=== PATIENT | male | born 1990 | race American Indian/Alaskan Native ===

== ENCOUNTER 2017-01-28 08:54 | Emergency (ER) | payer MEDICAID ==
[2017-01-28 09:53] LABS: Basophils % (Auto) 1.1 % (0.0-1.8); Eosinophils % (Auto) 4.9 % (0.0-4.3); Hematocrit 44.2 % (35.5-45.6); Hemoglobin 14.7 gm/dl (11.8-15.2); Mean Corpuscular HGB Conc 33 % (32-34); Mean Corpuscular Hemoglobin 32 pg (28-32); Mean Corpuscular Volume 96 fl (84-94); Platelet Count 134 K/mm3 (140-440); Red Blood Count 4.59 M/mm3 (3.65-5.03); White Blood Count 4.7 K/mm3 (4.5-11.0)
[2017-01-28 09:58] LABS: Anion Gap 16 mmol/L; BUN/Creatinine Ratio 11.81; Blood Urea Nitrogen 13 mg/dL (9-20); Calcium 9.4 mg/dL (8.4-10.2); Carbon Dioxide 25 mmol/L (22-30); Chloride 102.1 mmol/L (98-107); Glucose 94 mg/dL (75-100); Potassium 4.5 mmol/L (3.6-5.0); Sodium 139 mmol/L (137-145)
[2017-01-28 10:27] LABS: Urine Drugs of Abuse Note Disclamer
[2017-01-28 10:39] LABS: Bilirubin,Urine NEG (Negative); Blood,Urine NEG (Negative); Ketones,Urine TR mg/dL (Negative); Leukocyte Esterase,Urine NEG (Negative); Mucus,Urine FEW /HPF; Nitrite,Urine NEG (Negative); Protein,Urine <15 mg/dL mg/dL (Negative); Urobilinogen,Urine < 2.0 mg/dL (<2.0)
[2017-01-28 10:44] LABS: WBC,Urine < 1.0 /HPF (0.0-6.0)
[2017-01-28 13:32] VITALS: BP 130/78
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
== END 2017-01-28 14:14 | disposition home or self-care (01) ==
LOC: ED 08:54
DX: F20.9 Schizophrenia, unspecified (principal); Z76.0 Encounter for issue of repeat prescription; F31.9 Bipolar disorder, unspecified; F17.200 Nicotine dependence, unspecified, uncomplicated
CPT/HCPCS: 36415; 80048; 80164; 80307; 81001; 85025; 99283; G0480; 80320

== ENCOUNTER 2017-02-15 10:46 | Emergency (ER) | payer MEDICAID ==
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
[2017-02-15 12:23] LABS: Urine Drugs of Abuse Note Disclamer
[2017-02-15 12:45] LABS: Bilirubin,Urine NEG (Negative); Blood,Urine NEG (Negative); Ketones,Urine TR mg/dL (Negative); Leukocyte Esterase,Urine NEG (Negative); Mucus,Urine FEW /HPF; Nitrite,Urine NEG (Negative); Protein,Urine <15 mg/dL mg/dL (Negative); WBC,Urine < 1.0 /HPF (0.0-6.0)
[2017-02-15 12:45] LABS: Alanine Aminotransferase 51 units/L (7-56); Albumin 4.2 g/dL (3.9-5); Albumin/Globulin Ratio 1.7 %; Alkaline Phosphatase 47 units/L (35-129); Basophils % (Auto) 0.7 % (0.0-1.8); Blood Urea Nitrogen 13 mg/dL (9-20); Calcium 9.2 mg/dL (8.4-10.2); Carbon Dioxide 25 mmol/L (22-30); Glucose 133 mg/dL (75-100); Hemoglobin 13.3 gm/dl (11.8-15.2); Mean Corpuscular HGB Conc 33 % (32-34); Mean Corpuscular Hemoglobin 32 pg (28-32); Mean Corpuscular Volume 96 fl (84-94); Platelet Count 144 K/mm3 (140-440); Red Blood Count 4.16 M/mm3 (3.65-5.03); Red Cell Distribution Width 12.9 % (13.2-15.2); Total Protein 6.7 g/dL (6.3-8.2)
[2017-02-15 12:46] LABS: Anion Gap 16 mmol/L; Chloride 102.5 mmol/L (98-107); Potassium 4.5 mmol/L (3.6-5.0); Sodium 139 mmol/L (137-145)
[2017-02-15] MEDS ORDERED: GEODON PO ONE (13:16)
[2017-02-15] MEDS ORDERED: ATIVAN PO ONE (13:16)
--- NOTE | 2017-02-15 13:19 | Consultation ---
History of Present Illness - Reason for Consult Consult date: 02/15/17 Reason for consult: psychiatric evaluation - Chief Complaint Chief complaint: "I'm spiritual" 26 year old black male seen in the ER for psychiatric evaluation. He is loud, tangential, disorganized, and unable to be redirected. He was brought to the ER for psychosis/slime. He was unable to provided additional meaningful information. Medications and Allergies Allergies Allergy/AdvReac Type Severity Reaction Status Date / Time No Known Allergies Allergy Verified 11/20/16 23:40 Home Medications Medication Instructions Recorded Confirmed Last Taken Type Divalproex ER [DepaKOTE ER] 500 mg PO BID 10/08/16 02/15/17 10/07/16 History Benztropine [Cogentin] 1 mg PO BID #60 tab 01/28/17 02/15/17 Unknown Rx risperiDONE [RisperDAL] 4 mg PO QHS #30 tablet 01/28/17 02/15/17 Unknown Rx Ziprasidone [Geodon] 20 mg PO BID 02/15/17 02/15/17 Unknown History Past psychiatric history - Past Medical History Past Medical History: No medical history - past Psychiatric treatment and history Psych: Bipolar, Psychosis, Schizophrenia - Social History Social history: other (denies drug/alcohol use. UDS negative) Mental Status Exam - Vital signs Last Vital Signs Temp 98.2 F 02/15/17 12:56 Pulse 79 02/15/17 11:26 Resp 18 02/15/17 11:26 BP 135/92 02/15/17 11:26 Pulse Ox 96 02/15/17 11:26 - Exam Orientation: place, person Affect: other (expansive/labile) Mood: other (manic) Thought content: latter day Thought Process: Disorganized Perceptions: other (unable to assess) Speech: pressured Concentration: unable to pay attention Motor activity: agitated Level of consciousness: alert Sleep Symptoms: Difficulty Falling Asleep Interaction: other (he attempted to be cooperative but was unable to participate in the interview appropriately) Results Result Diagrams: 02/15/17 12:07 02/15/17 12:07 Abnormal lab results 02/15/17 02/15/17 Range/Units 12:07 12:07 MCV 96 H (84-94) fl RDW 12.9 L (13.2-15.2) % [place] % (Auto) 8.7 H (0.0-7.3) % Glucose 133 H (75-100) mg/dL AST 44 H (5-40) units/L All other labs normal. Assessment and Plan Assessment and plan: Impression: Slime/psychosis Schizoaffective disorder, bipolar type. Compliance with medication is unknown. Collateral needed Recommendations: Geodon 20mg po and Ativan 1mg po now 1013 and transfer to inpatient psychiatric facility
[2017-02-15 13:20] LABS: Valproate 73.5 ug/mL (50-100)
[2017-02-15 13:44] LABS: Salicylate < 0.3 mg/dL (2.8-20.0)
[2017-02-15] MEDS ORDERED: ATIVAN IM PRN (14:28)
[2017-02-16 00:56] VITALS: BP 145/85
== END 2017-02-16 01:58 ==
LOC: EEVIPCON 10:46 → ED 10:46
DX: F20.9 Schizophrenia, unspecified (principal); F31.9 Bipolar disorder, unspecified
CPT/HCPCS: 36415; 80053; 80164; 80178; 80307; 81001; 82140; 82550; 85025; 99285; G0480; 80320